=== PATIENT | female | born 1995 | race Caucasian/White ===

== ENCOUNTER 2017-01-24 12:32 | Emergency (ER) | payer OTHER ==
[~2017-01-24] VITALS: Ht 166.4 cm; Wt 74.4 kg
[~2017-01-24 12:32] MED LIST: BCPILLS PO; CETI10TA84 PO; DIPH25TA24 PO; IBUP-1428 PO; MULT-506 PO; SNG10 PO
[2017-01-24 12:37] VITALS: Ht 166.4 cm; Wt 74.4 kg
[2017-01-24] MEDS ORDERED: FAMOTIDINE 20MG/102 ML D5W IV STA (12:54)
[2017-01-24] MEDS ORDERED: DEXAMETHASONE SOD INJ 10 MG/ML VIAL IV ONE (13:00)
[2017-01-24] MEDS ORDERED: BND25CL PO (13:05)
[2017-01-24] MEDS ORDERED: ATR10 PO (13:05)
[2017-01-24] MEDS ORDERED: ASPI-391 PO (13:05)
[2017-01-24] MEDS ORDERED: OMEP20CA9 PO (13:06)
[2017-01-24 13:09] LABS: HEMATOCRIT 37.6 % (37-47); MEAN CORPUSCULAR HEMOGLOBIN 25.4 pg (25-34); MEAN PLATELET VOLUME 9.1 fL (7.4-10.4); PLATELET COUNT 374 K/uL (130-400); RED BLOOD COUNT 4.88 M/uL (4.2-5.4); WHITE BLOOD COUNT 5.05 K/uL (4.8-10.8)
--- NOTE | 2017-01-24 13:12 | EMERGENCY ROOM VISIT NOTE ---
History First contact with patient: 12:48 Chief Complaint: ALLERGIC REACTION Stated Complaint: SWOLLEN EYE, THROAT CLOSING UP, HIVES Nursing Triage Summary: Pt arrived via POV with c/o throat swelling, SOB, swelling to left eye and hives that started approx noon. Pt states she feels that she is having an allergic rxn "to [place] Pt states within 10 mins of arriving home she developed sx. Pt states she took 50mg of Benadryl at approx 1205. History of Present Illness The patient is a 21 year old female who presents to the Emergency Room with complaints of allergic reaction. The patient states that there are stray cats in the [place] lives. She reports a history of allergy to cats. The patient has had skin testing in the past. The patient states that she arrived home and was sitting in the living room for approximately 10 minutes when she began to experience what she describes as an allergic reaction. The patient states the windows were closed. She states that she did not come into contact with the cats but they are underneath the trailer and all around the house. She states that the porch was recently removed by the landlord. She states that the porch seemed to keep the cats at a distance. She states that she developed hives and swelling to the left eye. She states that she is having trouble breathing and feels like her throat is closing. The patient took 50 mg of oral Benadryl at noon and she states the hives and swelling have markedly improved. She denies any vomiting. She denies any shortness of breath. Review of Systems A 10 system review of systems was completed with positives and pertinent negatives listed in the HPI. Past Medical/Surgical History Patient denies Social History Smoking Status: Never Smoker Drug Use: none Marital Status: single Housing Status: lives with family Current/Historical Medications Scheduled Control Pills ( Control Pills), 1 TAB PO DAILY Cetirizine (Zyrtec), 10 MG PO DAILY Hydroxyzine HCl (Hydroxyzine HCl), 10 MG PO BID Methylprednisolone (Medrol Dosepak), 1 PKT PO UD Montelukast Sod (Montelukast Sodium), 10 MG PO DAILY Multivitamin (Multivitamin), 1 TAB PO DAILY Omeprazole (Prilosec), 20 MG PO QAM Scheduled PRN Gycjpvq-Saoqgcbvrlaag-Deukpthz (Excedrin Extra Strength), 2 TAB PO DAILY PRN for Pain Diphenhydramine HCl (Diphenhydramine HCl), 25 MG PO DAILY PRN for ALLERGIC REACTION Ibuprofen (Motrin), 800 MG PO Q8H PRN for Pain or Fever Allergies Coded Allergies: Cephalexin (Unverified Allergy, Unknown, HIVES, 01/24/17) Sulfamethoxazole w/Trimethoprim (Unverified Allergy, Unknown, HIVES, ) Physical Exam Vital Signs Date Time Temp Pulse Resp B/P Pulse Ox O2 Delivery O2 Flow Rate FiO2 01/24/17 14:49 36.8 70 16 129/72 98 01/24/17 13:28 66 01/24/17 12:37 99 Room Air 01/24/17 12:37 37.6 65 18 135/86 99 Room Air Physical Exam VITALS: Vitals are noted on the nurse's note and reviewed by myself. Vital signs stable. The patient's oxygen saturation is 99% on room air. GENERAL: This is a 21-year-old female, in no acute distress, nondiaphoretic, well-developed well-nourished. SKIN: there is very minimal left periorbital edema without erythema. There is no chemosis. There are a few, punctate areas of erythema over the neck. There is no tenting of the skin. Capillary reflex less than 2 seconds. HEAD: Normocephalic atraumatic. EARS: External auditory canals clear, tympanic membranes pearly cook without erythema or effusion bilaterally. EYES: Pupils equal round and reactive to light and accommodation. Conjunctivae without injection, sclerae without icterus. Extraocular movements intact. NOSE: Patent, turbinates without inflammation or discharge. MOUTH: Mucous membranes moist. Tonsils are not enlarged. Pharynx without erythema or exudate. Uvula midline. Airway patent. Tongue does not deviate. NECK: Supple without nuchal rigidity. No JVD. HEART: Regular rate and rhythm without murmurs gallops or rubs. LUNGS: Clear to auscultation bilaterally without wheezes, rales or rhonchi. No retractions or accessory muscle use. ABDOMEN: Positive bowel sounds x 4. Soft, nontender, without masses or organomegaly. MUSCULOSKELETAL: No muscle atrophy, erythema, or edema noted. Full range of motion in all extremities. No tenderness to palpation. Normal gait. Strength 5/5 throughout. NEURO: Patient was alert and oriented to person place and time. No focal neurological deficits. Medical Decision & Procedures Laboratory Results 01/24/17 13:00 Red Blood Count 4.88, Mean Corpuscular Volume 77.0, Mean Corpuscular Hemoglobin 25.4, Mean Corpuscular Hemoglobin Concent 33.0, Mean Platelet Volume 9.1, Neutrophils (%) (Auto) 48.0, Lymphocytes (%) (Auto) 45.0, Monocytes (%) (Auto) 3.0, Eosinophils (%) (Auto) 3.2, Basophils (%) (Auto) 0.6, Neutrophils # (Auto) 2.43, Lymphocytes # (Auto) 2.27, Monocytes # (Auto) 0.15, Eosinophils # (Auto) 0.16, Basophils # (Auto) 0.03 01/24/17 13:00 Test 01/24/17 13:00 White Blood Count 5.05 K/uL (4.8-10.8) Red Blood Count 4.88 M/uL (4.2-5.4) Hemoglobin 12.4 g/dL (12.0-16.0) Hematocrit 37.6 % (37-47) Mean Corpuscular Volume 77.0 fL (80-100) Mean Corpuscular Hemoglobin 25.4 pg (25-34) Mean Corpuscular Hemoglobin Concent 33.0 g/dl (32-36) Platelet Count 374 K/uL (130-400) Mean Platelet Volume 9.1 fL (7.4-10.4) Neutrophils (%) (Auto) 48.0 % Lymphocytes (%) (Auto) 45.0 % Monocytes (%) (Auto) 3.0 % Eosinophils (%) (Auto) 3.2 % Basophils (%) (Auto) 0.6 % Neutrophils # (Auto) 2.43 K/uL (1.4-6.5) Lymphocytes # (Auto) 2.27 K/uL (1.2-3.4) Monocytes # (Auto) 0.15 K/uL (0.11-0.59) Eosinophils # (Auto) 0.16 K/uL (0-0.5) Basophils # (Auto) 0.03 K/uL (0-0.2) RDW Standard Deviation 44.3 fL (36.4-46.3) RDW Coefficient of Variation 15.7 % (11.5-14.5) Immature Granulocyte % (Auto) 0.2 % Immature Granulocyte # (Auto) 0.01 K/uL (0.00-0.02) Anion Gap 10.0 mmol/L (3-11) Est Creatinine Clear Calc Drug Dose 107.8 ml/min Estimated GFR () 114.3 Estimated GFR (Non- 98.6 BUN/Creatinine Ratio 10.9 (10-20) Calcium Level 8.9 mg/dl (8.5-10.1) Medications Administered Medications (Trade) Dose Ordered Sig/Ben Route Start Time Stop Time Status Last Admin Dose Admin Dexamethasone Sodium Phosphate (Decadron Inj) 10 mg NOW ONCE IV 01/24/17 13:00 01/24/17 13:01 DC 01/24/17 13:16 10 MG Famotidine (Pepcid 20mg/100 ml) 20 mg ONE STAT IV 01/24/17 12:54 01/24/17 12:56 DC 01/24/17 13:16 20 MG ED Course The patient was seen and examined. Previous visits were reviewed. The patient does not have a fever or leukocytosis. I did recheck her temperature and it was normal prior to discharge. She does not have any significant electrolyte abnormalities. The patient complains of allergic reaction and states she had hives, itching and swelling of the left eye. By the time she arrived in the emergency department, it had been approximately one hours since she took Benadryl in her symptoms have markedly improved. She was given 10 mg IV Decadron and IV Pepcid. Her symptoms nearly resolved after the above treatment. It is not immediately clear what caused her reaction. The patient was given a prescription for Medrol Dosepak. She should return with any change or worsening symptoms. Medical Decision The differential diagnosis includes allergic reaction, anaphylaxis, cellulitis, viral illness, rash, among others Impression Primary Impression: Allergic reaction Additional Impression: Urticaria Departure Information Dispostion Home / Self-Care Condition GOOD Prescriptions Methylprednisolone (MEDROL DOSEPAK) 4 Mg [place] 1 PKT PO UD, #1 PKT Prov: Yanique Mays PA-C 01/24/17 Referrals Rebecca Deleon PA-C (PCP) Patient Instructions ED Allergic Reaction General Other, My [facility] Additional Instructions Continue the Benadryl for the next 2-3 days Medrol Dosepak as prescribed, until finished Return to the ER with worsening symptoms Otherwise, follow up with your family doctor for further evaluation and management Problem Qualifiers Primary Impression: Allergic reaction Encounter type: initial encounter Qualified Codes: T78.40XA - Allergy, unspecified, initial encounter
[2017-01-24 13:29] LABS: BASO % 0.6 %; BASO ABS # 0.03 K/uL (0-0.2); COMPLETE YES; EOS % 3.2 %; IG% 0.2 %; LYMPH ABS # 2.27 K/uL (1.2-3.4)
[2017-01-24 13:31] LABS: BUN/CREATININE RATIO 10.9 (10-20); CALCIUM 8.9 mg/dl (8.5-10.1); CREATININE 0.85 mg/dl (0.60-1.20); POTASSIUM 3.5 mmol/L (3.5-5.1)
[2017-01-24] MEDS ORDERED: METH4PAK PO (14:11)
[2017-01-24 14:49] VITALS: BP 129/72; PULSE 70; TEMP 36.8; O2SAT 98
== END 2017-01-24 14:51 | disposition home or self-care (01) ==
LOC: C.EDB 12:34 → C.EDA 14:51
DX: L50.0 Allergic urticaria (principal); Z79.3 Long term (current) use of hormonal contraceptives; Z79.899 Other long term (current) drug therapy

== ENCOUNTER 2017-06-22 11:43 | Emergency (ER) | payer OTHER ==
[~2017-06-22] VITALS: Ht 165.1 cm; Wt 79.7 kg
[~2017-06-22 11:43] MED LIST changes: +ASPI-391 PO; +ATR10 PO; +BND25CL PO; -DIPH25TA24 PO; +OMEP20CA9 PO
[2017-06-22 11:49] VITALS: BP 143/80; TEMP 36.8; Ht 165.1 cm; Wt 79.7 kg
[2017-06-22] MEDS ORDERED: FLUT1INH INH (11:58)
[2017-06-22] MEDS ORDERED: ALBUT/IPRATROP 3MG/0.5MG NEB 3 ML VIAL INH STA (12:06)
--- NOTE | 2017-06-22 12:45 | DIAGNOSTIC IMAGING REPORT ---
LEFT FOOT 3 VIEWS CLINICAL HISTORY: Left foot injury. Fifth toe pain. On his: 3 views of left foot are obtained. No prior studies are available for comparison at the time of dictation. The skeletal structures are well mineralized. No fracture is seen. The joint spaces of the foot are well-maintained. Mild dorsal soft tissue swelling is noted in the forefoot. IMPRESSION: Dorsal soft tissue swelling with no radiographic evidence of left foot fracture. Electronically signed by: Ernie Cummings M.D. 06/22/2017 12:44 PM Dictated Date/Time: 06/22/2017 12:43 PM
[2017-06-22 13:07] VITALS: PULSE 75; O2SAT 99
--- NOTE | 2017-06-22 14:07 | EMERGENCY ROOM VISIT NOTE ---
History First contact with patient: 12:02 Chief Complaint: FOOT PAIN Stated Complaint: POSSIBLE BROKEN LEFT FOOT/TOE History of Present Illness The patient is a 22 year old female who presents to the Emergency Room with complaints of a possible broken left small toe. The patient reports that she accidentally dropped a metal madeline bar onto her foot. She does complain of mild discomfort proximal to the toe, but denies any injury to the front of the leg or top of the foot. She reports paresthesias of the fifth toe. She rates her toe discomfort an 8 out of 10. The patient is also requesting an albuterol treatment with developing shortness of breath over the past few minutes of waiting for my evaluation. The patient does have a history of asthma, and denies any other recent upper respiratory infections. Review of Systems 10 system review was performed and was negative except for pertinent positives and negatives as indicated in history of present illness Past Medical/Surgical History Medical Problems: (1) Asthma (2) GERD (gastroesophageal reflux disease) Surgical Problems: (1) No history of previous surgery Family History Unremarkable Social History Smoking Status: Current Every Day Smoker Alcohol Use: occasionally Drug Use: none Marital Status: single Housing Status: lives with family Occupation Status: employed Current/Historical Medications Scheduled Control Pills ( Control Pills), 1 TAB PO DAILY Cetirizine (Zyrtec), 10 MG PO DAILY Fluticasone Furoate-Vilanterol (Breo Ellipta), 1 PUFF INH BID Hydroxyzine HCl (Hydroxyzine HCl), 10 MG PO BID Montelukast Sod (Montelukast Sodium), 10 MG PO DAILY Multivitamin (Multivitamin), 1 TAB PO DAILY Omeprazole (Prilosec), 20 MG PO QAM Scheduled PRN Csvjrbi-Mtgdbrxybhutn-Saxemxbx (Excedrin Extra Strength), 2 TAB PO DAILY PRN for Pain Diphenhydramine HCl (Diphenhydramine HCl), 25 MG PO DAILY PRN for ALLERGIC REACTION Ibuprofen (Motrin), 800 MG PO Q8H PRN for Pain or Fever Physical Exam Vital Signs Date Time Temp Pulse Resp B/P (MAP) Pulse Ox O2 Delivery O2 Flow Rate FiO2 06/22/17 13:07 75 16 99 06/22/17 11:49 36.8 78 18 143/80 96 Room Air Physical Exam CONSTITUTIONAL: Healthy and well nourished. Alert and oriented X 3 with positive affect. Patient does not appear in any acute respiratory distress or discomfort from her toe injury. HEENT: Normocephalic, atraumatic. Pupils equal, round and reactive. NECK: Full active range of motion without discomfort. RESPIRATORY: Clear to auscultation bilaterally with no wheezing, crackles, rhonchi or stridor. CARDIOVASCULAR: Regular rate and rhythm with no murmurs, rubs or gallops. MUSCULOSKELETAL: Examination shows mild bruising at the left fifth MTP joint. She has mild peripheral edema without any lacerations or obvious deformity. No focal tenderness across the dorsal midfoot or anterior leg/ankle. Pedal pulses are intact. INTEGUMENTARY: No rash or other significant dermatologic conditions noted. NEUROLOGIC: Left foot and toes are sensory intact. Medical Decision & Procedures ER Provider Diagnostic Interpretation: My interpretation of left foot x-rays does not show any fractures or dislocations of the toes or metatarsals. Radiologist report is as follows: LEFT FOOT 3 VIEWS CLINICAL HISTORY: Left foot injury. Fifth toe pain. On his: 3 views of left foot are obtained. No prior studies are available for comparison at the time of dictation. The skeletal structures are well mineralized. No fracture is seen. The joint spaces of the foot are well-maintained. Mild dorsal soft tissue swelling is noted in the forefoot. IMPRESSION: Dorsal soft tissue swelling with no radiographic evidence of left foot fracture. Medications Administered Medications (Trade) Dose Ordered Sig/Ben Route Start Time Stop Time Status Last Admin Dose Admin Albuterol/ Ipratropium (Duoneb) 3 ml NOW STAT INH 06/22/17 12:06 06/22/17 12:08 DC 06/22/17 12:11 3 ML ED Course Patient history and physical exam were performed. Nurse's notes were reviewed. Vital signs were reviewed and normal. The patient requested an albuterol treatment. The patient does report a history of asthma, and does not have a metered-dose inhaler with her. A DuoNeb unit dose treatment was administered. She refused any analgesics on initial exam. X-rays of the left foot were normal. The patient had relief with her nebulizer treatment. The patient was encouraged to intermittently apply ice and elevate the foot for swelling. Minimize weightbearing on the foot as needed. The patient was provided tape to brittany tape her toes. She was encouraged to take I be peripheral and Tylenol as needed for pain, and follow-up with her PCP if symptoms are not improving within the next week. The patient voiced understanding of all discharge instructions, was happy with plan of care, refused any analgesics prior to discharge, and rated her pain a 4 out of 10. Medical Decision Medication Reconcilliation Current Medication List: was personally reviewed by me Blood Pressure Screening Patient's blood pressure: Normal blood pressure Impression Primary Impression: Contusion of foot Additional Impression: Dyspnea Departure Information Referrals Rebecca Deleon PA-C (PCP) Patient Instructions My [facility] Problem Qualifiers Primary Impression: Contusion of foot Encounter type: initial encounter Laterality: left Qualified Codes: S90.32XA - Contusion of left foot, initial encounter Additional Impression: Dyspnea Dyspnea type: unspecified Qualified Codes: R06.00 - Dyspnea, unspecified
== END 2017-06-22 13:09 | disposition home or self-care (01) ==
LOC: C.EDB 11:44 → C.EDD 13:09
DX: S90.32XA Contusion of left foot, initial encounter (principal); M79.89 Other specified soft tissue disorders; W31.89XA Contact with other specified machinery, initial encounter; R06.02 Shortness of breath; J45.909 Unspecified asthma, uncomplicated; F17.210 Nicotine dependence, cigarettes, uncomplicated; Z79.899 Other long term (current) drug therapy

== ENCOUNTER 2017-10-11 09:03 | Emergency (ER) | payer OTHER ==
[~2017-10-11] VITALS: Ht 165.1 cm; Wt 85.9 kg
[~2017-10-11 09:03] MED LIST changes: -BND25CL PO; +DIPH25CA48 PO; +FLUT1INH INH
[2017-10-11 09:04] VITALS: TEMP 36.6; Ht 165.1 cm; Wt 85.9 kg
[2017-10-11] MEDS ORDERED: DOXYCYCLINE HYCLATE 100 MG CAP PO STA (09:21)
[2017-10-11] MEDS ORDERED: DOXY100C PO (09:44)
--- NOTE | 2017-10-11 09:48 | EMERGENCY ROOM VISIT NOTE ---
ED Visit Note First contact with patient: 09:10 CHIEF COMPLAINT: ingrown toenail right great toe HISTORY OF PRESENT ILLNESS: This 22-year-old female patient presents to the emergency department, ambulatory, with her mother, complaining of swelling and pain in the right great toenail at rest and worse with weight bearing. The patient sates she is dealing with an ingrown toenail for approximately one month. She was initially placed on prednisone by her PCP approximately one month ago. She states this did seem to help for approximately one week, then over the past week, she has been experiencing worsening puslike drainage. The patient rates the pain as throbbing and 6/10. The patient has and not had relief of the pain for while on prednisone. The patient is able to walk. No numbness or weakness. There are no lacerations of the foot. The patient is able to move all of their toes, but movement of the right great toe does cause pain. No injury noted. She denies any fever, chills, nausea, vomiting, or other systemic symptoms. She has been covering the wound with Neosporin and a bandage. REVIEW OF SYSTEMS: GENERAL: A 6 system review of systems was completed with positives and pertinent negatives in the HPI. ALLERGIES: Cephalexin, Bactrim MEDICATIONS: Cetirizine, Singulair, control pills, multivitamin, Benadryl , Excedrin, hydroxyzine, Prilosec, Breo PMH: Asthma, allergies, GERD SOCIAL HISTORY: The patient lives locally with family. She denies drug, alcohol , tobacco use. She is employed at [employer]. PHYSICAL EXAM: Vital Signs: Reviewed Nurse's notes, vital signs stable. GENERAL : This is a 22-year-old white female, in no acute distress, but appears in pain , well-developed, well-nourished. MUSCULOSKELATAL: There is no visual deformity of the right foot. There is erythema and swelling on the medial aspect of the right great toenail. There is pus-like drainage. The toenail is ingrown, and the corners of the toenail are trimmed down. There is no other erythema, edema , or ecchymosis. There is minimal warmth. The range of motion of the right great toe is mildly limited secondary to pain. There is no tenderness over the plantar fascia. The skin is intact and there are no lacerations or puncture wounds. Dorsalis pedis pulse 2+. Capillary refill less than 2 seconds. EMERGENCY DEPARTMENT COURSE: I examined the patient. This does appear to be an ingrown toenail, and I do feel that it will do well with conservative treatment. Verbal consent was obtained to perform the procedure. The nail was cleansed with Betadine. The toenail was already draining pus-like discharge. I assisted with expression of the pus-like drainage with direct pressure. The tissue was trimmed off of the toe. The swelling did improve significantly. The toenail was slightly lifted from the nail bed, and a small piece of cotton was placed between the nail and the nail bed. Bacitracin ointment and a bandage was applied. The patient was given a dose of Doxycycline. I discussed with her that she may need some Amoxicillin or Augmentin to help with strep, as we were unable to prescribe Keflex or Bactrim due to the patient's allergies to these medications. She will follow-up with her PCP later this week or early next week for re-check and in case the symptoms do not improve and she needs more antibiotics and/or removal of the ingrown nail. Discharge instructions reviewed. The patient was discharged home in good condition. I attest that I have personally reviewed the patient's current medication list. Patient was found to have normal blood pressure on screening and does not require follow-up. DIFFERENTIAL DIAGNOSIS: Ingrown toenail, abscess, cellulitis, malignancy, fracture, and others DIAGNOSIS: Infected ingrown toenail of right great toe Current/Historical Medications Scheduled Control Pills ( Control Pills), 1 TAB PO DAILY Cetirizine (Zyrtec), 10 MG PO DAILY Doxycycline Hyclate (Vibramycin), 100 MG PO BID Fluticasone Furoate-Vilanterol (Breo Ellipta), 1 PUFF INH BID Hydroxyzine HCl (Hydroxyzine HCl), 10 MG PO BID Montelukast Sod (Montelukast Sodium), 10 MG PO DAILY Multivitamin (Multivitamin), 1 TAB PO DAILY Omeprazole (Prilosec), 20 MG PO QAM Scheduled PRN Bizclwg-Ponlwbhiqzlgu-Rxhbancd (Excedrin Extra Strength), 2 TAB PO DAILY PRN for Pain Diphenhydramine HCl (Diphenhydramine HCl), 25 MG PO DAILY PRN for ALLERGIC REACTION Ibuprofen (Motrin), 800 MG PO Q8H PRN for Pain or Fever Allergies Coded Allergies: Cephalexin (Unverified Allergy, Unknown, HIVES, 01/24/17) Sulfamethoxazole w/Trimethoprim (Unverified Allergy, Unknown, HIVES, ) Vital Signs Date Time Temp Pulse Resp B/P (MAP) Pulse Ox O2 Delivery O2 Flow Rate FiO2 10/11/17 09:59 75 18 151/79 98 10/11/17 09:04 36.6 79 18 136/87 97 Room Air Medications Administered Medications (Trade) Dose Ordered Sig/Ben Route Start Time Stop Time Status Last Admin Dose Admin Doxycycline Hyclate (Vibramycin Cap) 100 mg ONE STAT PO 10/11/17 09:21 10/11/17 09:25 DC 10/11/17 09:39 100 MG Departure Information Impression Primary Impression: Ingrown nail of great toe of right foot Dispostion Home / Self-Care Condition GOOD Prescriptions Doxycycline Hyclate (VIBRAMYCIN) 100 Mg Cap 100 MG PO BID for 10 Days, #20 CAP Prov: Nimo Schaeffer PA-C 10/11/17 Referrals Rebecca Deleon PA-C (PCP) Patient Instructions ED Toenail Ingrown Infec Abx On, [facility] Additional Instructions You were seen in the emergency department stay for an ingrown toenail. This does appear to be infected. He was started on antibiotics to help with the infection, and a small piece of cotton was placed under the toenail to help raise it away from the nailbed. You were prescribed doxycycline to be taken as prescribed. This is an antibiotic. All antibiotics have the potential to cause diarrhea. This medication can also make you sensitive to the son. Please see sunscreen and wear a hat and long clothing when out and about. Stop this medication and contact a medical provider if you were to develop any significant adverse side effects including: wheezing, shortness of breath, passing out, vomiting, or a diffuse rash. Always take antibiotics as directed and COMPLETE the ENTIRE course regardless of the improvement of your symptoms. Please continue to do warm, Epsom salt soaks to help with infection and swelling. After soaking, raised nail bed and placed a small piece of cotton under the nail as instructed. Use bacitracin ointment and a bandage to keep the wound covered. Follow-up with your PCP early next week for recheck of the infection. Return to the emergency department for fever, chills, nausea, vomiting, systemic symptoms, or worsening redness and pain.
[2017-10-11 09:59] VITALS: BP 151/79; PULSE 75; O2SAT 98
== END 2017-10-11 09:59 | disposition home or self-care (01) ==
LOC: C.EDB 09:04 → C.EDA 09:59
DX: L60.0 Ingrowing nail (principal); B99.9 Unspecified infectious disease; J45.909 Unspecified asthma, uncomplicated; K21.9 Gastro-esophageal reflux disease without esophagitis; Z79.899 Other long term (current) drug therapy; Z88.2 Allergy status to sulfonamides; Z88.8 Allergy status to other drugs, medicaments and biological substances